=== PATIENT | male | born 1980 | race Caucasian/White ===

== ENCOUNTER 2017-12-27 08:51 | Emergency (ER) | payer MEDICAID, OTHER ==
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
[2017-12-27 11:03] VITALS: BP 124/79; PULSE 83; RESP 16; TEMP 99.9; O2SAT 93
== END 2017-12-27 10:26 | disposition home or self-care (01) ==
DX: S13.9XXA Sprain of joints and ligaments of unspecified parts of neck, initial encounter (principal); V79.50XA Passenger on bus injured in collision with unspecified motor vehicles in traffic accident, initial encounter; Y92.410 Unspecified street and highway as the place of occurrence of the external cause; Y99.8 Other external cause status; Y93.89 Activity, other specified

== ENCOUNTER 2018-06-30 07:41 | Emergency (ER) | payer MEDICAID ==
[~2018-06-30 07:41] MED LIST: AMOXICILLIN/CLAVULANATE POT 875/125 MG TAB PO SCH
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
[2018-06-30] MEDS ORDERED: AMOXICILLIN/CLAVULANATE POT 875/125 MG TAB PO ONE (09:42)
[2018-06-30] MEDS ORDERED: ACETAMINOPHEN 500 MG TAB ONE (10:10)
[2018-06-30] MEDS ORDERED: IBUPROFEN 600 MG TAB PO ONE (10:10)
[2018-06-30 10:19] VITALS: BP 133/80
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
--- NOTE | 2018-06-30 11:34 | ASMTCAGE ---
CAGE Do you feel you ought to Answers: Yes cut down on your drinking or drug use? Do people annoy you by Answers: No criticizing your drinking or drug use? Do you feel guilty about Answers: No your drinking or drug use? Do you drink or use drugs Answers: No first thing in the morning (Eye Publicity Manager)? Date Signed: 06/30/2018 11:33 AM Electronically Signed By:Sarah Jacobs RN
--- NOTE | 2018-07-01 10:19 | ASMTCMCOM ---
CM Note CM Note Notes: Followed up w/GLEN Mcelroy Brush Operator at [facility]; pt has already stopped by their clinic this morning and is hoping to be seen if there is a cancellation today. We discussed pt's need for follow-up w/ENT and Ophthalmology, and Lilibeth states she will follow-up w/pt and assist as needed w/coordination of appts and possibly transportation to appts. Lilibeth will also reach out to [facility] and see about getting pt a sooner appt (than ) to discuss his ETOH abuse and antidepressants. Also followed up w/ENT and Ophthalmology referrals and spoke w/their scheduling staff; neither office received the faxed referrals via [email or web address] yesterday. This CM faxed referrals again via traditional method to both offices and confirmed they were received. Both office's staff understand needs to be seen today or tomorrow. CM available for further assistance if needed. Date Signed: 07/01/2018 10:18 AM Electronically Signed By:Sarah Jacobs RN
== END 2018-06-30 10:18 | disposition home or self-care (01) ==
LOC: EDUNIT#
DX: S02.32XA Fracture of orbital floor, left side, initial encounter for closed fracture (principal); F17.210 Nicotine dependence, cigarettes, uncomplicated; Y04.0XXA Assault by unarmed brawl or fight, initial encounter

== ENCOUNTER 2018-10-21 11:40 | Emergency (ER) | payer MEDICAID ==
[2018-10-21 11:57] VITALS: BP 136/101
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
== END 2018-10-21 13:48 | disposition home or self-care (01) ==
DX: R05 Cough (principal); Z59.0 Homelessness